=== PATIENT | male | born 1960 | race Caucasian/White ===

== ENCOUNTER 2020-03-17 10:04 | Day surgery (SDC) | payer BC ==
[2020-03-17] MEDS ORDERED: MIDAZOLAM 2 MG/2 ML VIAL IVP ONE (10:05)
[2020-03-17] MEDS ORDERED: fentaNYL 250 MCG/5 ML VIAL IVP ONE (10:05)
[2020-03-17] MEDS ORDERED: LACTATED RINGERS 1,000 ML IV ONE ×2 (10:16→12:10)
[2020-03-17 12:36] VITALS: BP 132/73
== END 2020-03-17 10:05 | disposition home or self-care (01) ==
LOC: SDS 10:04
PROVIDERS: ATTEND Surgery
DX: Z12.11 Encounter for screening for malignant neoplasm of colon (principal); K57.30 Diverticulosis of large intestine without perforation or abscess without bleeding; K21.9 Gastro-esophageal reflux disease without esophagitis
CPT/HCPCS: 45378; J3010; J7120

== ENCOUNTER 2020-12-12 05:57 | Day surgery (SDC) | payer BC ==
[2020-12-12] MEDS ORDERED: ceFAZolin 2 GM/50 ML 2 GM/50 ML BAG IV ONE (06:15)
[2020-12-12] MEDS ORDERED: LACTATED RINGERS 1,000 ML IV ONE ×2 (06:15→09:25)
[2020-12-12] MEDS ORDERED: PROPOFOL 200 MG/20 ML VIAL IVP ONE (07:02)
[2020-12-12] MEDS ORDERED: ONDANSETRON 4 MG/2 ML VIAL ONE (07:02)
[2020-12-12] MEDS ORDERED: LIDOCAINE-MPF 2% 5 ML VIAL ONE (07:02)
[2020-12-12] MEDS ORDERED: DEXAMETHASONE 4 MG/ML VIAL ONE (07:02)
[2020-12-12] MEDS ORDERED: KETOROLAC 30 MG/ML VIAL ONE (07:02)
[2020-12-12] MEDS ORDERED: fentaNYL 100 MCG/2 ML VIAL ONE (07:04)
[2020-12-12] MEDS ORDERED: LIDOCAINE 2%-EPI 1:100000 20 ML MDV ONE (07:13)
[2020-12-12] MEDS ORDERED: BUPIVACAINE 0.5% PF 30 ML VIAL ONE (07:13)
[2020-12-12] MEDS ORDERED: ceFAZolin 1 GM VIAL ONE (07:13)
[2020-12-12] MEDS ORDERED: METOCLOPRAMIDE 10 MG/2 ML VIAL IVP PRN (07:21)
[2020-12-12] MEDS ORDERED: MIDAZOLAM 2 MG/2 ML VIAL ONE (07:21)
[2020-12-12] MEDS ORDERED: ONDANSETRON 4 MG/2 ML VIAL IVP PRN ×2 (07:21→09:35)
[2020-12-12] MEDS ORDERED: MORPHINE 2 MG/ML CARPUJECT IVP PRN (07:21)
[2020-12-12] MEDS ORDERED: HYDROmorphone 0.5 MG/0.5 ML SYRINGE IVP PRN (07:21)
[2020-12-12] MEDS ORDERED: NALOXONE 0.4 MG/ML VIAL IVP PRN (07:21)
[2020-12-12] MEDS ORDERED: ePHEDrine 50 MG/ML VIAL IVP PRN (07:21)
[2020-12-12] MEDS ORDERED: fentaNYL 100 MCG/2 ML VIAL IVP PRN (07:21)
[2020-12-12] MEDS ORDERED: ATROPINE ABBOJECT 1 MG/10 ML SYRINGE IVP PRN (07:21)
--- NOTE | 2020-12-12 07:21 | ANESTHESIA ---
Pre-Anesthesia VS, & Labs - Diagnosis bilateral inguinal hernia - Procedure bilateral inguinal hernia repair Vital Signs: Temp Pulse Resp BP Pulse Ox 36.7 C 82 16 140/102 H 96 12/12/20 06:15 12/12/20 06:15 12/12/20 06:15 12/12/20 06:15 12/12/20 06:15 Height: 5 ft 11 in Weight (kg): 87.4 kg Body Mass Index: 26.9 BMI Classification: Overweight - NPO >8 hours - Lab Results Lab results reviewed: Yes Home Medications and Allergies Home Medications: Ambulatory Orders Omeprazole [PriLOSEC] 20 mg PO DAILY 12/01/20 Omeprazole [PriLOSEC] 20 mg PO DAILY 12/01/20 Allergies/Adverse Reactions: Allergies Allergy/AdvReac Type Severity Reaction Status Date / Time codeine Allergy Severe Respiratory Verified 12/01/20 13:46 Penicillins Allergy Intermediate Itching Verified 12/01/20 13:46 Anes History & Medical History - Anesthetic History Anesthesia Complications: reports: No previous complications Family history of Anesthesia Complications: Denies Family history of Malignant Hyperthermia: Denies - Medical History Cardiovascular: reports: None Pulmonary: reports: None Gastrointestinal: reports: GERD Urinary: reports: Kidney stones Musculoskeletal: reports: None Endocrine/Autoimmune: reports: None Skin: reports: None Psychosocial: reports: Alcohol (1 a day) - Surgical History General: reports: Colonoscopy Orthopedic: reports: Arthroscopic surgery Exam General: Alert, Oriented x3, Cooperative, No acute distress Dental: WNL Mouth Openin Fingerbreadth Neck Mobility: Normal Mallampati classification: I Respiratory: Lungs clear, Normal breath sounds, No respiratory distress, No accessory muscle use Cardiovascular: Regular rate, Normal S1, Normal S2, No murmurs Plan Anesthesia Type: General Consent for Procedure(s) Verified and Reviewed: Yes Code Status: Attempt Resuscitation ASA classification: 2-Mild systemic disease Is this case an emergency?: No
[2020-12-12] MEDS ORDERED: LACTATED RINGERS 1,000 ML IV SCH (08:00)
[2020-12-12] MEDS ORDERED: BUPIVACAINE 0.5% PF 30 ML VIAL SUBQ ONE (08:30)
[2020-12-12] MEDS ORDERED: LIDOCAINE 1%-EPI 1:100000 30 ML MDV SUBQ ONE (08:30)
[2020-12-12] MEDS ORDERED: ceFAZolin 1 GM VIAL IR ONE (08:30)
[2020-12-12] MEDS ORDERED: ePHEDrine 50 MG/ML VIAL IVP ONE (08:44)
--- NOTE | 2020-12-12 09:33 | OPERATIVE REPORT ---
Operative Report - General Procedure Date: 12/12/20 Planned Procedure: Bilateral Inguinal Hernia Repair Pre-Op Diagnosis: Bilateral Inguinal Hernias Procedure Performed: Bilateral Inguinal Hernia Repair Post Op Diagnosis: Large direct bilateral inguinal hernias - Procedure Note Primary Surgeon: Colton Anesthesia Provider: GONZALEZ Ibrahim Anesthesia Technique: General LMA, Local Pathology: None Estimated Blood Loss (mL): 10 Indications: Symptomatic bilateral inguinal hernias Findings: Very large direct hernias bilaterally Complications: None apparent - Other Other Information/Narrative: After obtaining informed consent, the patient is brought to the operating room and placed in the supine position on the operating table. Following successful induction of general endotracheal anesthesia, appropriate padding of all bony prominences, and placement of appropriate monitors, the abdomen was prepped and draped in the standard surgical fashion. A timeout was held per scope protocol. All elements of the surgical safety checklist were followed before, during, and after the procedure. We began the procedure by infiltrating a mixture of local anesthetics medial to the anterior superior iliac spine on the left. This was done to create an ileal inguinal nerve block. We then selected a site for an incision in the left lower quadrant just superior and lateral to the left pubic tubercle. This area was anesthetized with additional local anesthetic and an incision was created here.The incision was carried down through the skin and subcutaneous tissue to reveal the fascia of the external oblique aponeurosis. Retractor was placed and the aponeurosis was opened in direction of its fibers. The ilioinguinal nerve was immediately identified. Due to the patient's preoperative symptoms with significant pain rating down his left groin, I elected to divide the nerve. Hemostats were placed, the nerve divided between hemostats, and each side tied w ith a 3-0 Vicryl suture. We continued by identifying the spermatic cord and gently encircling it with a [place] drain. The hernia sac was carefully dissected free from the cord structures and was noted to be in the inferior lateral position. The hernia sack was notable for preperitoneal fat and left colon. The hernia contents were placed back into the abdominal cavity with great care. We elected to repair the hernia with a large Prolene hernia system mesh implant. This was dipped in Ancef containing solution and then deployed into the defect. The posterior leaflet was straightened and flattened in the preperitoneal space. The anterior leaflet was then nicked laterally to provide a place for the spermatic cord and then closed with a Vicryl suture. The more inferior aspect was then sewn to Jaspreet's ligament medially. Laterally it was tucked under the external beak aponeurosis. The wound was checked for hemostasis and irrigated with warm saline solution. It was aspirated free of all fluid and particulate matter. The extra oblique aponeurosis was then closed with a running locking Vicryl suture Leesa's fascia was closed with Vicryl suture and In sorb clips were placed in the skin. We began the procedure by infiltrating a mixture of local anesthetics medial to the anterior superior iliac spine on the right. This was done to create an ileal inguinal nerve block. We then selected a site for an incision in the right lower quadrant just superior and lateral to the right pubic tubercle. This area was anesthetized with additional local anesthetic and an incision was created here.The incision was carried down through the skin and subcutaneous tissue to reveal the fascia of the external oblique aponeurosis. Retractor was placed and the aponeurosis was opened in direction of its fibers. The ilioinguinal nerve was immediately identified and preserved. We continued by identifying the spermatic cord and gently encircling it with a [place] drain. The hernia sac was carefully dissected free from the cord structures and was noted to be in the inferior lateral position. The hernia sack was notable for a large knuckle of preperitoneal fat. The hernia contents were placed back into the abdominal cavity with great care. We elected to repair the hernia with a large Prolene hernia system mesh implant. This was dipped in Ancef containing solution and then deployed into the defect. The posterior leaflet was straightened and flattened in the preperitoneal space. The anterior leaflet was then nicked laterally to provide a place for the spermatic cord and then closed with a Vicryl suture. The more inferior aspect was then sewn to Jaspreet's ligament medially. Laterally it was tucked under the external beak aponeurosis. The wound was checked for hemostasis and irrigated with warm saline solution. It was aspirated free of all fluid and particulate matter. The extra oblique aponeurosis was then closed with a running locking Vicryl suture Leesa's fascia was closed with Vicryl suture and In sorb clips were placed in the skin. All sponge, needle, and instrument counts were correct at the conclusion of the case. The patient was allowed awaken from anesthesia without difficulty and taken to the postanesthesia care unit in good condition.
[2020-12-12] MEDS ORDERED: IBUPROFEN 600 MG TABLET PO PRN (09:35)
[2020-12-12] MEDS ORDERED: oxyCODONE 5 MG TABLET PO PRN (09:35)
[2020-12-12] MEDS ORDERED: ACETAMINOPHEN 325 MG TABLET PO PRN (09:35)
[2020-12-12 10:14] VITALS: BP 128/90
--- NOTE | 2020-12-12 15:33 | ANESTHESIA POST OP EVALUATION ---
Anesthesia Post Eval - Post Anesthesia Eval Vitals: Last Vital Signs Temp 36 C L 12/12/20 10:13 Pulse 83 12/12/20 10:13 Resp 12 12/12/20 10:13 BP 128/90 H 12/12/20 10:13 Pulse Ox 98 12/12/20 10:13 CV Function Including HR & BP: Stable Pain Control: Satisfactory Nausea & Vomiting: Negative Mental Status: Baseline Respiratory Status: Airway Patent Hydration Status: Satisfactory Anesthesia Complications: None
== END 2020-12-12 05:58 | disposition home or self-care (01) ==
LOC: SDS 05:57
PROVIDERS: ATTEND Surgery
DX: K40.21 Bilateral inguinal hernia, without obstruction or gangrene, recurrent (principal); K21.9 Gastro-esophageal reflux disease without esophagitis
CPT/HCPCS: 49520; C1781; J0690; J7120

== ENCOUNTER 2022-05-01 06:34 | Day surgery (SDC) | payer BC ==
[~2022-05-01 06:34] MED LIST: CEFAZOLIN 2G/50ML 0.9% NS 2 GM/50 ML BAG IV ONE; LACTATED RINGERS 1,000 ML IV ONE
[2022-05-01] MEDS ORDERED: LIDOCAINE MPF 2%-EPI 1:200000 20 ML VIAL ONE (07:21)
[2022-05-01] MEDS ORDERED: BUPIVACAINE 0.25% PF 10 ML VIAL ONE (07:21)
[2022-05-01] MEDS ORDERED: DEXAMETHASONE 4 MG/ML VIAL ONE (07:22)
[2022-05-01] MEDS ORDERED: ROCURONIUM 50 MG/5 ML VIAL ONE (07:22)
[2022-05-01] MEDS ORDERED: ONDANSETRON 4 MG/2 ML VIAL ONE (07:22)
[2022-05-01] MEDS ORDERED: fentaNYL 100 MCG/2 ML VIAL ONE ×3 (07:22→09:56)
[2022-05-01] MEDS ORDERED: PROPOFOL 200 MG/20 ML VIAL IVP ONE (07:22)
[2022-05-01] MEDS ORDERED: MIDAZOLAM 2 MG/2 ML VIAL ONE (07:22)
[2022-05-01] MEDS ORDERED: SUGAMMADEX 200 MG/2 ML VIAL IVP ONE (07:22)
[2022-05-01] MEDS ORDERED: LIDOCAINE-PF 2% 10 ML AMP SUBQ ONE (07:25)
[2022-05-01] MEDS ORDERED: HYDROmorphone 0.5 MG/0.5 ML SYRINGE IVP PRN ×2 (08:02→09:36)
[2022-05-01] MEDS ORDERED: NALOXONE 0.4 MG/ML VIAL IVP PRN (08:02)
[2022-05-01] MEDS ORDERED: MORPHINE 2 MG/ML CARPUJECT IVP PRN (08:02)
[2022-05-01] MEDS ORDERED: ATROPINE ABBOJECT 1 MG/10 ML SYRINGE IVP PRN (08:02)
[2022-05-01] MEDS ORDERED: METOCLOPRAMIDE 10 MG/2 ML VIAL IVP PRN (08:02)
[2022-05-01] MEDS ORDERED: fentaNYL 100 MCG/2 ML VIAL IVP PRN (08:02)
[2022-05-01] MEDS ORDERED: ONDANSETRON 4 MG/2 ML VIAL IVP PRN ×2 (08:02→09:36)
[2022-05-01] MEDS ORDERED: ePHEDrine 50 MG/ML VIAL IVP PRN (08:02)
--- NOTE | 2022-05-01 08:02 | ANESTHESIA ---
Pre-Anesthesia VS, & Labs - Diagnosis cholecystitis - Procedure lap cholecystectomy Vital Signs: Temp Pulse Resp BP Pulse Ox O2 Flow Rate 36.1 C L 85 16 145/97 H 96 05/01/22 06:37 05/01/22 06:37 05/01/22 06:37 05/01/22 06:37 05/01/22 06:37 Height: 5 ft 11 in Weight (kg): 90 kg Body Mass Index: 27.6 BMI Classification: Overweight - NPO >8 hours Home Medications and Allergies Home Medications: Ambulatory Orders Pantoprazole [Protonix] 40 mg PO DAILY 04/23/22 Pantoprazole [Protonix] 40 mg PO DAILY 04/23/22 Allergies/Adverse Reactions: Allergies Allergy/AdvReac Type Severity Reaction Status Date / Time codeine Allergy Severe Respiratory Verified 05/01/22 06:54 Penicillins Allergy Intermediate Itching Verified 05/01/22 06:54 Anes History & Medical History - Anesthetic History Anesthesia Complications: reports: No previous complications Family history of Anesthesia Complications: Denies Family history of Malignant Hyperthermia: Denies - Medical History Cardiovascular: reports: Hypertension Pulmonary: reports: None Gastrointestinal: reports: GERD Urinary: reports: Kidney stones Musculoskeletal: reports: None Endocrine/Autoimmune: reports: None Skin: reports: None - Surgical History General: reports: Colonoscopy, EGD, Other Orthopedic: reports: Arthroscopic surgery Exam General: Alert, Oriented x3, Cooperative Dental: WNL Mouth Openin Fingerbreadth Neck Mobility: Normal Mallampati classification: II Thyromental Distance: 4-6 cm Respiratory: Lungs clear Cardiovascular: Regular rate Plan Anesthesia Type: General Consent for Procedure(s) Verified and Reviewed: Yes Code Status: Attempt Resuscitation ASA classification: 2-Mild systemic disease Is this case an emergency?: No
[2022-05-01] MEDS ORDERED: BUPIVACAINE 0.25% PF 30 ML VIAL SUBQ ONE (08:09)
[2022-05-01] MEDS ORDERED: LACTATED RINGERS 1,000 ML IV SCH (09:00)
[2022-05-01] MEDS ORDERED: KETOROLAC 30 MG/ML VIAL ONE (09:08)
[2022-05-01] MEDS ORDERED: oxyCODONE 5 MG TABLET PO PRN (09:36)
--- NOTE | 2022-05-01 09:43 | OPERATIVE REPORT ---
Operative Report - General Procedure Date: 05/01/22 Planned Procedure: lap sujit Pre-Op Diagnosis: chronic cholecystitis Procedure Performed: lap sujit Post Op Diagnosis: chronic cholecystitis - Procedure Note Primary Surgeon: cyrus almanzar Pathology: gallbladder Estimated Blood Loss (mL): 5 Drain/Tube Type: Other (none) Indications: chronic gallbladder pain Findings: obstructed gallbladder twice normal size and thickness Complications: none - Other Other Information/Narrative: The patient was properly identified, brought to the operating room and placed in supine position. Sequential compression devices were placed. General endotracheal anesthesia was induced. The patient was prepped and draped in a sterile fashion and given preoperative antibiotics. Local anesthetic was given to incision areas. An incision was made in the periumbilical area. Dissection proceeded down to fascia. The fascia was incised lifted upwards and abdomen entered with a Veress needle. CO2 was insufflated to a pressure of 15. An 11 mm trocar followed by a 30 degree scope was placed. There was no evidence of injury from Veress needle or trocar placement. Under direct vision 2 5 mm tr ochars were placed in the right upper quadrant and an 11 mm trocar was placed in the epigastrium. Body of the gallbladder was retracted anterior. Lateral attachments were partially taken down further mobilizing the gallbladder more anterior and away from the duodenum. The infundibulum of the gallbladder was then retracted right lateral and caudad. With minimal use of cautery a large bare cystic plate area or window was carefully created. The cystic duct was inspected from right lateral and left lateral positions. [] The cystic duct was then clipped at the gallbladder and 3 times slightly proximal and sharply divided. The cystic artery was clipped at the gallbladder and then 2 times slightly proximal and sharply divided. The gallbladder was mobilized off from the bed of the liver with hook cautery. The gallbladder was placed in Endo Catch bag and brought out through the epigastric trocar site. Hemostasis was assured. Trochars were removed under direct vision. Fascia at the larger trocar sites was closed with [id number] are running 0 Vicryl suture. Subcutaneous tissue was irrigated and skin closed with interrupted 4-0 Monocryl. Dressings were applied. Patient tolerated the procedure well was awakened and brought to recovery in good condition.
[2022-05-01] MEDS ORDERED: LACTATED RINGERS 450 ML IV ONE (09:49)
[2022-05-01] MEDS ORDERED: HYDROmorphone 1 MG/ML CARPUJECT ONE (09:56)
[2022-05-01] MEDS ORDERED: ONDANSETRON ODT 4 MG TABLET ONE ×2 (10:33→11:26)
--- NOTE | 2022-05-01 11:00 | ANESTHESIA POST OP EVALUATION ---
Anesthesia Post Eval - Post Anesthesia Eval Vitals: Last Vital Signs Temp 36.2 C L 05/01/22 10:35 Pulse 75 05/01/22 10:35 Resp 12 05/01/22 10:35 BP 145/97 H 05/01/22 10:35 Pulse Ox 93 05/01/22 10:35 O2 Flow Rate CV Function Including HR & BP: Stable Pain Control: Satisfactory Nausea & Vomiting: Negative Mental Status: Baseline Respiratory Status: Airway Patent Hydration Status: Satisfactory Anesthesia Complications: None
[2022-05-01] MEDS ORDERED: oxyCODONE 5 MG TABLET ONE (11:24)
[2022-05-01 11:50] VITALS: BP 150/90
== END 2022-05-01 06:35 | disposition home or self-care (01) ==
LOC: SDS 06:34
PROVIDERS: ATTEND Surgery
PROC: 0FT44ZZ Resection of Gallbladder, Percutaneous Endoscopic Approach (ICD-10-PCS; principal; 2022-05-01 07:30)
DX: K80.11 Calculus of gallbladder with chronic cholecystitis with obstruction (principal); I10 Essential (primary) hypertension
CPT/HCPCS: 47562; A9270; J0690; J1170; J7120; Q0162